=== PATIENT | female | born 1955 | race Caucasian/White ===

== ENCOUNTER → 2025-01-20 | Outpatient (REF) | payer OTHER ==
[~2025-01-20] MED LIST: AVALIDE 150-121 EACH PO; VITAMIN D2000 UNI1 PO; VYTORIN 10-201 EACH PO
== END ==
LOC: MRI 09:53
PROVIDERS: ATTEND Podiatrist Foot Surgery
DX: M66.871 Spontaneous rupture of other tendons, right ankle and foot (principal)